=== PATIENT | male | born 1950 | race Caucasian/White ===

== ENCOUNTER 2016-09-16 08:43 | Outpatient (CLI) | payer MEDICARE, MEDICAID | END 2016-09-16 08:44 | disposition home or self-care (01) | DX: E11.9 Type 2 diabetes mellitus without complications (principal); D64.9 Anemia, unspecified; N18.9 Chronic kidney disease, unspecified ==

== ENCOUNTER 2016-11-25 08:33 | Outpatient (CLI) | payer MEDICARE, MEDICAID | END 2016-11-25 08:34 | disposition home or self-care (01) | DX: N05.9 Unspecified nephritic syndrome with unspecified morphologic changes (principal); N25.81 Secondary hyperparathyroidism of renal origin; E11.9 Type 2 diabetes mellitus without complications; D70.9 Neutropenia, unspecified ==

== ENCOUNTER 2017-02-15 15:03 | Outpatient (CLI) | payer MEDICARE, MEDICAID ==
[2017-02-15 18:41] LABS: BASOPHILS # (AUTO) 0.1 10^3/uL (0.0-0.1); EOSINOPHILS # (AUTO) 0.1 10^3/uL (0.0-0.7); EOSINOPHILS % (AUTO) 1.8 %; HCT - HEMATOCRIT 30.4 % (42.0-52.0); HGB - HEMOGLOBIN 10.4 g/dL (14.0-18.0); LYMPHOCYTES # (AUTO) 1.1 10^3/uL (1.5-3.5); LYMPHOCYTES % (AUTO) 20.9 %; MEAN CORPUSCULAR HEMOGLOBIN 30.3 pg (27.0-31.0); MEAN CORPUSCULAR HGB CONC 34.3 g/dL (32.0-36.0); MEAN CORPUSCULAR VOLUME 88.3 fL (80.0-94.0); MEAN PLATELET VOLUME 8.4 fL (7.4-11.4); MONOCYTES # (AUTO) 0.6 10^3/uL (0.0-1.0); MONOCYTES % (AUTO) 11.4 %; NEUTROPHILS # (AUTO) 3.4 10^3/uL (1.5-6.6); NEUTROPHILS % (AUTO) 64.9 %; NUCLEATED RED BLOOD CELLS AUTO 0.1 /100WBC; RED BLOOD COUNT 3.44 10^6/uL (4.70-6.10); RED CELL DISTRIBUTION WIDTH 13.2 % (12.0-15.0); UNCORRECTED WHITE BLOOD COUNT 5.3 x10^3/uL; WHITE BLOOD COUNT 5.3 x10^3/uL (4.8-10.8)
[2017-02-15 19:01] LABS: CALCIUM 8.6 mg/dL (8.5-10.3); CREATININE 2.6 mg/dL (0.6-1.2); POTASSIUM 4.3 mmol/L (3.5-5.0)
== END 2017-02-15 15:04 | disposition home or self-care (01) ==
LOC: LAB.F 15:03
PROVIDERS: ATTEND Internal Medicine Nephrology
DX: N05.9 Unspecified nephritic syndrome with unspecified morphologic changes (principal); D50.0 Iron deficiency anemia secondary to blood loss (chronic); D70.9 Neutropenia, unspecified
CPT/HCPCS: 36415; 80048; 82728; 83540; 84466; 85025

== ENCOUNTER 2017-06-28 08:00 | Outpatient (CLI) | payer MEDICARE, MEDICAID ==
[2017-06-28 18:08] LABS: BASOPHILS # (AUTO) 0.1 10^3/uL (0.0-0.1); BASOPHILS % (AUTO) 0.7 %; EOSINOPHILS # (AUTO) 0.1 10^3/uL (0.0-0.7); EOSINOPHILS % (AUTO) 1.1 %; HCT - HEMATOCRIT 32.3 % (42.0-52.0); HGB - HEMOGLOBIN 11.1 g/dL (14.0-18.0); LYMPHOCYTES # (AUTO) 0.9 10^3/uL (1.5-3.5); LYMPHOCYTES % (AUTO) 10.4 %; MEAN CORPUSCULAR HEMOGLOBIN 30.7 pg (27.0-31.0); MEAN CORPUSCULAR HGB CONC 34.4 g/dL (32.0-36.0); MEAN CORPUSCULAR VOLUME 89.4 fL (80.0-94.0); MEAN PLATELET VOLUME 9.2 fL (7.4-11.4); MONOCYTES # (AUTO) 0.6 10^3/uL (0.0-1.0); MONOCYTES % (AUTO) 7.1 %; NEUTROPHILS # (AUTO) 6.8 10^3/uL (1.5-6.6); NEUTROPHILS % (AUTO) 80.7 %; RED BLOOD COUNT 3.62 10^6/uL (4.70-6.10); UNCORRECTED WHITE BLOOD COUNT 8.4 x10^3/uL; WHITE BLOOD COUNT 8.4 x10^3/uL (4.8-10.8)
[2017-06-28 18:47] LABS: ALBUMIN/GLOBULIN RATIO 1.5 (1.0-2.2); BILIRUBIN,TOTAL 0.6 mg/dL (0.2-1.0); BUN - BLOOD UREA NITROGEN 65 mg/dL (6-20); CALCIUM 8.8 mg/dL (8.5-10.3); CARBON DIOXIDE - CO2 21 mmol/L (21-32); CHLORIDE 111 mmol/L (101-111); CREATININE 2.5 mg/dL (0.6-1.2); GFR - MDRD 26 (>89); GLUCOSE 184 mg/dL (70-100); IRON 50 ug/dL (45-182); SODIUM 138 mmol/L (135-145); TOTAL IRON BINDING CAPACITY 238 ug/dL (250-450); TOTAL PROTEIN 6.9 g/dL (6.7-8.2); TRANSFERRIN 170 mg/dL (180-329)
[2017-06-28 18:56] LABS: HEMOGLOBIN A1C 0.67 g/dL
== END 2017-06-28 08:01 | disposition home or self-care (01) ==
LOC: LAB.F 08:00
PROVIDERS: ATTEND Nurse Practitioner Family
DX: E11.22 Type 2 diabetes mellitus with diabetic chronic kidney disease (principal); D64.9 Anemia, unspecified
CPT/HCPCS: 36415; 80053; 82043; 83036; 83540; 84443; 84466; 85025

== ENCOUNTER 2017-06-28 09:08 | Outpatient (CLI) | payer MEDICARE, MEDICAID | END 2017-06-28 09:09 | disposition EMS.NT | LOC: EMS 09:08 | PROVIDERS: ATTEND Surgery | DX: R25.1 Tremor, unspecified (principal); R42 Dizziness and giddiness; R61 Generalized hyperhidrosis ==

== ENCOUNTER 2017-06-28 11:28 | Outpatient (CLI) | payer MEDICARE, MEDICAID | END 2017-06-28 11:29 | disposition home or self-care (01) | LOC: RT.S 11:28 | PROVIDERS: ATTEND Nurse Practitioner Family | DX: R55 Syncope and collapse (principal); E11.22 Type 2 diabetes mellitus with diabetic chronic kidney disease; E64.9 Sequelae of unspecified nutritional deficiency | CPT/HCPCS: 36415; 80053; 82043; 83036; 83540; 84443; 84466; 85025; 93005 ==

== ENCOUNTER 2017-07-05 10:55 | Outpatient (CLI) | payer MEDICARE, MEDICAID ==
[2017-07-05 17:54] LABS: BASOPHILS % (AUTO) 0.8 %; EOSINOPHILS # (AUTO) 0.1 10^3/uL (0.0-0.7); EOSINOPHILS % (AUTO) 1.3 %; HCT - HEMATOCRIT 29.8 % (42.0-52.0); HGB - HEMOGLOBIN 10.1 g/dL (14.0-18.0); LYMPHOCYTES # (AUTO) 0.8 10^3/uL (1.5-3.5); LYMPHOCYTES % (AUTO) 18.3 %; MEAN CORPUSCULAR HEMOGLOBIN 30.8 pg (27.0-31.0); MEAN CORPUSCULAR VOLUME 90.5 fL (80.0-94.0); MEAN PLATELET VOLUME 8.9 fL (7.4-11.4); MONOCYTES # (AUTO) 0.4 10^3/uL (0.0-1.0); MONOCYTES % (AUTO) 9.6 %; NEUTROPHILS # (AUTO) 3.1 10^3/uL (1.5-6.6); NUCLEATED RED BLOOD CELLS AUTO 0.1 /100WBC; RED BLOOD COUNT 3.29 10^6/uL (4.70-6.10); UNCORRECTED WHITE BLOOD COUNT 4.4 x10^3/uL; WHITE BLOOD COUNT 4.4 x10^3/uL (4.8-10.8)
[2017-07-05 18:05] LABS: CALCIUM 8.9 mg/dL (8.5-10.3); CREATININE 2.8 mg/dL (0.6-1.2); POTASSIUM 5.7 mmol/L (3.5-5.0)
== END 2017-07-05 10:56 | disposition home or self-care (01) ==
LOC: LAB.F 10:55
PROVIDERS: ATTEND Nurse Practitioner Family
DX: N18.9 Chronic kidney disease, unspecified (principal); D64.9 Anemia, unspecified; Z78.9 Other specified health status
CPT/HCPCS: 36415; 80048; 83540; 84466; 85025; 86803; 87389

== ENCOUNTER 2017-07-10 11:02 | Outpatient (CLI) | payer MEDICARE, MEDICAID ==
[2017-07-10 18:52] LABS: BASOPHILS % (AUTO) 0.6 %; EOSINOPHILS # (AUTO) 0.1 10^3/uL (0.0-0.7); EOSINOPHILS % (AUTO) 1.1 %; HCT - HEMATOCRIT 30.9 % (42.0-52.0); HGB - HEMOGLOBIN 10.6 g/dL (14.0-18.0); LYMPHOCYTES # (AUTO) 0.6 10^3/uL (1.5-3.5); LYMPHOCYTES % (AUTO) 11.2 %; MEAN CORPUSCULAR HEMOGLOBIN 30.8 pg (27.0-31.0); MEAN CORPUSCULAR HGB CONC 34.1 g/dL (32.0-36.0); MEAN CORPUSCULAR VOLUME 90.3 fL (80.0-94.0); MEAN PLATELET VOLUME 9.2 fL (7.4-11.4); MONOCYTES # (AUTO) 0.4 10^3/uL (0.0-1.0); MONOCYTES % (AUTO) 7.7 %; NEUTROPHILS # (AUTO) 4.4 10^3/uL (1.5-6.6); NEUTROPHILS % (AUTO) 79.4 %; RED BLOOD COUNT 3.43 10^6/uL (4.70-6.10); RED CELL DISTRIBUTION WIDTH 12.9 % (12.0-15.0); UNCORRECTED WHITE BLOOD COUNT 5.6 x10^3/uL; WHITE BLOOD COUNT 5.6 x10^3/uL (4.8-10.8)
[2017-07-10 19:04] LABS: CALCIUM 8.5 mg/dL (8.5-10.3); CREATININE 2.8 mg/dL (0.6-1.2); POTASSIUM 5.3 mmol/L (3.5-5.0)
== END 2017-07-10 11:03 | disposition home or self-care (01) ==
LOC: LAB.F 11:02
PROVIDERS: ATTEND Nurse Practitioner Family
DX: N18.9 Chronic kidney disease, unspecified (principal); D64.9 Anemia, unspecified
CPT/HCPCS: 36415; 80048; 85025

== ENCOUNTER 2017-09-08 13:55 | Outpatient (CLI) | payer MEDICARE, MEDICAID ==
[2017-09-08 17:37] LABS: HGB - HEMOGLOBIN 10.2 g/dL (14.0-18.0); MEAN CORPUSCULAR HEMOGLOBIN 30.1 pg (27.0-31.0); MEAN CORPUSCULAR HGB CONC 34.2 g/dL (32.0-36.0); MEAN CORPUSCULAR VOLUME 87.9 fL (80.0-94.0); MEAN PLATELET VOLUME 8.7 fL (7.4-11.4); RED BLOOD COUNT 3.38 10^6/uL (4.70-6.10); RED CELL DISTRIBUTION WIDTH 12.6 % (12.0-15.0); WHITE BLOOD COUNT 4.7 x10^3/uL (4.8-10.8)
[2017-09-08 18:19] LABS: CALCIUM 8.8 mg/dL (8.5-10.3); CREATININE 2.8 mg/dL (0.6-1.2)
== END 2017-09-08 13:56 | disposition home or self-care (01) ==
LOC: LAB.F 13:55
PROVIDERS: ATTEND Internal Medicine Nephrology
DX: N05.9 Unspecified nephritic syndrome with unspecified morphologic changes (principal); D70.9 Neutropenia, unspecified; D63.1 Anemia in chronic kidney disease
CPT/HCPCS: 36415; 80048

== ENCOUNTER 2017-09-28 08:38 | Outpatient (CLI) | payer MEDICARE, MEDICAID ==
[2017-09-28 10:22] LABS: BASOPHILS % (AUTO) 0.9 %; EOSINOPHILS # (AUTO) 0.1 10^3/uL (0.0-0.7); HGB - HEMOGLOBIN 10.9 g/dL (14.0-18.0); LYMPHOCYTES % (AUTO) 18.2 %; MEAN CORPUSCULAR HEMOGLOBIN 30.5 pg (27.0-31.0); MEAN CORPUSCULAR HGB CONC 34.8 g/dL (32.0-36.0); MEAN CORPUSCULAR VOLUME 87.8 fL (80.0-94.0); MEAN PLATELET VOLUME 8.5 fL (7.4-11.4); MONOCYTES # (AUTO) 0.5 10^3/uL (0.0-1.0); NEUTROPHILS # (AUTO) 3.7 10^3/uL (1.5-6.6); NEUTROPHILS % (AUTO) 68.9 %; PLT - PLATELET COUNT 129 10^3/uL (130-450); RED BLOOD COUNT 3.58 10^6/uL (4.70-6.10); RED CELL DISTRIBUTION WIDTH 12.5 % (12.0-15.0); WHITE BLOOD COUNT 5.4 x10^3/uL (4.8-10.8)
[2017-09-28 10:41] LABS: % IRON SATURATION 17 % (20-50); CHOL/HDL RATIO 5.6 (<5.0); CHOLESTEROL 175 mg/dL; HDL CHOLESTEROL 31 mg/dL; IRON 40 ug/dL (45-182); LDL CHOLESTEROL,CALCULATED 117 mg/dL; LDL/HDL RATIO 3.8 (<3.6); TOTAL IRON BINDING CAPACITY 242 ug/dL (250-450); TRANSFERRIN 173 mg/dL (180-329); VLDL CHOLESTEROL 27 mg/dL
[2017-09-28 11:18] LABS: HB2 TOTAL 11.6 g/dL; HEMOGLOBIN A1C 0.93 g/dL; HEMOGLOBIN A1C % 9.5 % (4.6-6.2)
== END 2017-09-28 08:39 | disposition home or self-care (01) ==
LOC: LAB.F 08:38
PROVIDERS: ATTEND Nurse Practitioner Family
DX: E11.9 Type 2 diabetes mellitus without complications (principal); D64.9 Anemia, unspecified
CPT/HCPCS: 36415; 80061; 82043; 83036; 83540; 83721; 84466; 85025

== ENCOUNTER 2017-12-18 08:34 | Outpatient (CLI) | payer MEDICARE, MEDICAID ==
[2017-12-18 12:02] LABS: CALCIUM 8.7 mg/dL (8.5-10.3)
[2017-12-18 12:08] LABS: HGB - HEMOGLOBIN 10.4 g/dL (14.0-18.0); MEAN CORPUSCULAR HEMOGLOBIN 30.7 pg (27.0-31.0); MEAN CORPUSCULAR HGB CONC 34.8 g/dL (32.0-36.0); MEAN CORPUSCULAR VOLUME 88.1 fL (80.0-94.0); MEAN PLATELET VOLUME 8.6 fL (7.4-11.4); RED BLOOD COUNT 3.38 10^6/uL (4.70-6.10); RED CELL DISTRIBUTION WIDTH 12.9 % (12.0-15.0); WHITE BLOOD COUNT 4.3 x10^3/uL (4.8-10.8)
[2017-12-18 12:18] LABS: HB2 TOTAL 11.5 g/dL; HEMOGLOBIN A1C 0.72 g/dL; HEMOGLOBIN A1C % 7.9 % (4.6-6.2)
== END 2017-12-18 08:35 | disposition home or self-care (01) ==
LOC: LAB.F 08:34
PROVIDERS: ATTEND Internal Medicine Nephrology
DX: N05.9 Unspecified nephritic syndrome with unspecified morphologic changes (principal); E11.9 Type 2 diabetes mellitus without complications; D63.1 Anemia in chronic kidney disease; D70.9 Neutropenia, unspecified
CPT/HCPCS: 36415; 80048; 83036; 85027

== ENCOUNTER 2018-02-16 11:03 | Outpatient (CLI) | payer MEDICARE, MEDICAID ==
[2018-02-16 17:46] LABS: BASOPHILS # (AUTO) 0.1 10^3/uL (0.0-0.1); BASOPHILS % (AUTO) 1.2 %; EOSINOPHILS # (AUTO) 0.1 10^3/uL (0.0-0.7); EOSINOPHILS % (AUTO) 1.7 %; HGB - HEMOGLOBIN 10.5 g/dL (14.0-18.0); LYMPHOCYTES % (AUTO) 18.4 %; MEAN CORPUSCULAR HEMOGLOBIN 30.5 pg (27.0-31.0); MEAN CORPUSCULAR HGB CONC 34.1 g/dL (32.0-36.0); MEAN CORPUSCULAR VOLUME 89.3 fL (80.0-94.0); MEAN PLATELET VOLUME 8.6 fL (7.4-11.4); MONOCYTES # (AUTO) 0.5 10^3/uL (0.0-1.0); MONOCYTES % (AUTO) 8.9 %; NEUTROPHILS # (AUTO) 3.7 10^3/uL (1.5-6.6); NEUTROPHILS % (AUTO) 69.8 %; PLT - PLATELET COUNT 120 10^3/uL (130-450); RED BLOOD COUNT 3.45 10^6/uL (4.70-6.10); RED CELL DISTRIBUTION WIDTH 13.1 % (12.0-15.0); WHITE BLOOD COUNT 5.3 x10^3/uL (4.8-10.8)
[2018-02-16 17:51] LABS: CALCIUM 8.7 mg/dL (8.5-10.3); CREATININE 2.9 mg/dL (0.6-1.2)
== END 2018-02-16 11:04 | disposition home or self-care (01) ==
LOC: LAB.F 11:03
PROVIDERS: ATTEND Internal Medicine Nephrology
DX: N05.9 Unspecified nephritic syndrome with unspecified morphologic changes (principal); D70.9 Neutropenia, unspecified
CPT/HCPCS: 36415; 80048; 85025

== ENCOUNTER 2018-03-22 13:28 | Outpatient (CLI) | payer MEDICARE, MEDICAID ==
[2018-03-22 20:53] LABS: HB2 TOTAL 10.7 g/dL; HEMOGLOBIN A1C 0.6 g/dL; HEMOGLOBIN A1C % 7.3 % (4.6-6.2)
== END 2018-03-22 13:29 | disposition home or self-care (01) ==
LOC: LAB.F 13:28
PROVIDERS: ATTEND Nurse Practitioner Family
DX: E11.9 Type 2 diabetes mellitus without complications (principal)
CPT/HCPCS: 36415; 83036

== ENCOUNTER 2018-05-03 13:20 | Outpatient (CLI) | payer MEDICARE, MEDICAID ==
--- NOTE | 2018-05-04 08:35 | MRI Report ---
Reason: BALANCE PROBLEM,CVA Procedure Date: 05/03/2018 Accession Number: [id number] / [id number] Procedure: MRI - Brain W/O CPT Code: FULL RESULT: EXAM: MRI BRAIN WITHOUT CONTRAST EXAM DATE: 05/03/2018 02:17 PM. CLINICAL HISTORY: 68-year-old man with balance problems and history of stroke. COMPARISON: MRI BRAIN W/O CONTRAST 05/04/2011 10:26 AM HEAD W/O 07/16/2014 1:46 PM. TECHNIQUE: Multiplanar, multisequence T1-weighted and fluid-sensitive MR sequences of the brain were performed. Sequences optimized for routine evaluation. Other: None. IV Contrast: None. FINDINGS: Parenchyma: No evidence of acute infarct on diffusion weighted sequence. Wedge-shaped region of encephalomalacia is present in the right parietal lobe, consistent with remote infarct. Encephalomalacia was present at this location on the 2011 MRI, but underlying flair hyperintensity is significantly increased in size, likely reflecting continued chronic ischemic insult with gliosis. Several small defects are present in the medial cerebellar hemispheres bilaterally, new compared to the 2011 exam and most consistent with remote lacunar infarcts. Small remote hemorrhage is present along the posterior limb of the left internal capsule, present on the 2011 MRI. Otherwise, the parenchyma demonstrates mild to moderate burden of nonspecific FLAIR hyperintensities in the periventricular and deep cerebral white matter as well as the jac, slightly progressed compared to the 2011 exam. Pituitary: Unremarkable. Ventricles and Extra-axial Spaces: Ventricles are nearly symmetric but moderately enlarged for age, slightly progressed compared to the 2011 MRI. For example, the third ventricle measures 8 mm in transverse diameter, previously 6 mm. Ventricular enlargement is somewhat out of proportion to sulcal enlargement. Extra-axial spaces are unremarkable. Orbits: Unremarkable except for bilateral lens replacement surgery. Sinuses: Small mucus retention cyst is present along the floor of the right maxillary sinus. Mastoid air cells are clear. Major Vascular Flow Voids: Intact. IMPRESSION: 1. No acute intracranial abnormality. Specifically, no evidence of acute infarct, hemorrhage, or mass lesion. 2. Wedge-shaped region of encephalomalacia is present in the right parietal lobe, consistent with remote infarct. Encephalomalacia was present at this location on the 05/04/2011 MRI, but underlying signal abnormality has progressed, likely reflecting continued chronic ischemic insult in the same vascular territory. 3. Multiple small remote lacunar infarcts in the medial cerebellar hemispheres bilaterally, new compared to the 2011 MRI. 4. Small remote hemorrhage in the posterior limb of the left internal capsule, unchanged from the 2011 MRI. 5. Ventricles are moderately enlarged, progressed compared to the prior MRI. Findings are consistent with central cerebral volume loss greater than expected for age or normal pressure hydrocephalus. 6. Mild to moderate white matter changes, most consistent with sequelae of chronic small vessel ischemic disease and slightly progressed compared to the 2011 MRI. [facility]
== END 2018-05-03 13:21 | disposition home or self-care (01) ==
LOC: DI 13:20
PROVIDERS: ATTEND Nurse Practitioner Family
DX: I63.81 Other cerebral infarction due to occlusion or stenosis of small artery (principal); G93.89 Other specified disorders of brain; R27.9 Unspecified lack of coordination
CPT/HCPCS: 70551